=== PATIENT | female | born 1945 | race Caucasian/White ===

== ENCOUNTER 2019-10-29 14:02 | Observation (INO) | payer MEDICARE, SELFPAY ==
--- NOTE | ~2019-10-29 | CT_ITS ---
EXAMINATION: CT abdomen pelvis wo con DATE: 10/29/2019 15:17 INDICATION: Fall. Elevated INR. TECHNIQUE: Computed tomography (CT) of the abdomen and pelvis was performed without intravenous contr ast. Automated exposure control and iterative reconstruction technique were employed. Exam dose: 794 .43 mGy-cm total exam DLP. COMPARISON: None. FINDINGS: There is groundglass infiltrate in the right lower lobe, most prominent in the superior seg ment. There is some atelectasis and air bronchograms in the posteromedial right lower lobe and to a l pee extent the dependent left lower lobe. There is minimal groundglass infiltrate in the right uppe r lobe. There are bilateral small pleural effusions. There is cardiomegaly. There is aortic valve replacement . There is extensive severe coronary artery calcification. Status post sternotomy. No pericardial eff usion. No hepatic, splenic space-occupying mass lesion or visceral laceration is evident. No bile duct dilat ation. No pancreatic mass lesion or calcification or ductal dilatation. Normal morphology of the adrenal glands 3.7 cm upper pole left renal cyst 1.8 cm lower pole left renal probable cyst. Indeterminate 1.7 cm hyperdense rounded lesion at the upper pole of the right kidney, most likely a h yperdense cyst Exophytic 2.1 cm lateral mid right renal cyst. No ureteral calculus or hydroureteronephrosis. Up to approximately 3.2 cm infrarenal abdominal aortic saccular aneurysm. There is extensive severe calcification of the abdominal aorta and branches, with cast-like calcifica tions extensively of the celiac, mesenteric, renal and iliac arteries and branches. No intraperitoneal or retroperitoneal or pelvic mass lesion or adenopathy or ascites is detected. The urinary bladder, uterus and adnexal areas are unremarkable except for an approximately 1.7 x 2 cm right adnexal cystic lesion of uncertain significance. There are numerous diverticula of the sigmoid and descending colon; no CT evidence of diverticulitis. No bowel obstruction or intraperitoneal free air. Diffuse osteopenia. There are numerous fracture deformities of the thoracic and lumbar spine includin g prominent compression fractures of T7, T9, burst fracture of T11, in addition to prominent anterior wedge compression fracture deformities of T12, L1, L2. There is biconcavity of the remaining vertebr ae in the lower thoracic and lumbar spine area. One or more of these fractures may be recent. IMPRESSION: Numerous fracture deformities of the thoracic and lumbar spine, one or more of which kingsley ht be recent Diffuse osteopenia Groundglass infiltrates in the right lower lobe and to a lesser extent right upper lobe Atelectasis in both dependent lower lobes Small pleural effusions Cardiomegaly Severe arterial calcifications throughout the thorax and abdomen 3.2 cm infrarenal abdominal aortic saccular aneurysm Bilateral renal cysts Diverticulosis of the colon; no CT evidence of diverticulitis Reviewed, dictated and finalized at [facility]. Reviewed, dictated and finalized at [facility]. IMPRESSION: Numerous fracture deformities of the thoracic and lumbar spine, on e or more of which might be recent Diffuse osteopenia Groundglass infiltrates in the right lower lobe and to a lesser extent right up per lobe Atelectasis in both dependent lower lobes Small pleural effusions Cardiomegaly Severe arterial calcifications throughout the thorax and abdomen 3.2 cm infrarenal abdominal aortic saccular aneurysm Bilateral renal cysts Diverticulosis of the colon; no CT evidence of diverticulitis
--- NOTE | ~2019-10-29 | CT_ITS ---
EXAMINATION: CT brain wo con INDICATION: Head injury, lack of coordination COMPARISON: None TECHNIQUE: Standard unenhanced head CT. The dose-length product (DLP) was 605.33 mGy-cm. The mA was a djusted according to patient size. Iterative reconstruction technique was employed. FINDINGS: There is no acute intraparenchymal hemorrhage. No evidence of mass lesion. No evidence of a cute infarction. There are areas of prior infarction in the left basal ganglia. There is moderate per iventricular and subcortical hypodensity probably related to small vessel ischemic disease. There is moderate prominence of the sulci and ventricles related to cerebral atrophy. Intracranial calcified c erebral atherosclerosis is noted. There are no extra-axial collections. There is no mass effect or mi dline shift. Changes in the globes are likely from ocular lens surgery. The visualized sinuses and m astoid air cells are well aerated. There is partial opacification of the left nasal cavity. IMPRESSION: 1. No acute intracranial abnormality. 2. Age related findings. Reviewed, dictated and finalized at [facility].
[2019-10-29 14:05] VITALS: BP 132/75; PULSE 62; RESP 16; TEMP 36.5; O2SAT 93
[2019-10-29 14:20] LABS: Basophils Percent Auto 0.7 % (0.2-1.2); Eosinophils Absolute Auto 0.2 K/mm3 (0-0.3); Eosinophils Percent Auto 3.1 % (0-4.4); Hematocrit 24.5 % (37.0-47.0); Hemoglobin 7.5 g/dL (12.0-15.0); Immature Granulocyte Absolute 0.05 K/mm3 (0.00-0.031); Immature Granulocyte Percent A 0.8 % (0-0.5); Lymphocytes Absolute Auto 0.65 K/mm3 (0.9-3.2); Lymphocytes Percent Auto 10.6 % (18.3-44.2); Mean Corpuscular HGB Conc 30.6 g/dl (32-36); Mean Corpuscular Hemoglobin 31.6 pg (26-34); Mean Corpuscular Volume 103.4 fl (80-100); Mean Platelet Volume 9.2 fl (7.4-10.4); Monocytes Absolute Auto 0.3 K/mm3 (0.1-0.6); Monocytes Percent Auto 4.4 % (2.6-8.5); Neutrophils Percent Auto 80.4 % (45.5-73.1); Platelet Count Result 175 k/mm3 (150-375); Red Blood Count 2.37 M/mm3 (4.2-5.4); Red Cell Distribution Width 16.9 % (11.5-14.5); White Blood Count 6.2 K/mm3 (4.5-10.0)
--- NOTE | 2019-10-29 14:21 | ED.RECABL ---
HPI - Recheck/Abnormal Lab/Rx General Chief Complaint: Recheck/Abnormal Lab/Rx Stated Complaint: ABN LABS/DARK STOOLS Time Seen by Provider: 10/29/19 14:15 Source: patient and old records reviewed Mode of arrival: EMS Limitations: other (poor historian) History of Present Illness HPI narrative: A 74 y/o female pt presents to the ED, via EMS from [facility], with c/o nose bleed, black stools, and an INR lab result of >10. Pt was sent by nursing staff and her PCP Dr. Bejarano. Per nursing facility records, pt's INR was a 2.8 on 10/13/2019 and was >10 on 10/27/2019. Nursing facility records report that pt was ordered 5mg of vitamin K orally today, but did not administer to pt d/t not having any in stock at the facility. Pt notes having pain to her rt side from a recent fall that she states she received medical attention for, but denies having any pain in the ED. Per old records, pt has a rib fracture from a recent fall. Pt takes Warfarin as her anticoagulation therapy. Per records, pt is a DNR. A complete HPI is limited d/t pt being a poor historian. MD complaint: abnormal lab (INR) Description of abnormal result: INR >10 on 10/17/2019 Associated symptoms: other (black stools, epistaxis) Related Data Home Medications Medication Instructions Recorded Confirmed atorvastatin 80 mg PO DAILY 10/29/19 carvedilol 37.5 mg PO BID 10/29/19 docusate sodium [Colace] 100 mg PO DAILY 10/29/19 famotidine 40 mg PO DAILY 10/29/19 fentanyl 1 patch TRANSDERMAL Q72H 10/29/19 ferrous sulfate 325 mg PO DAILY 10/29/19 furosemide 40 mg PO DAILY 10/29/19 hydralazine 25 mg PO TID 10/29/19 isosorbide dinitrate 20 mg PO BID 10/29/19 lidocaine [Lidocaine Pain Relief] 1 patch TOPICAL DAILY PRN 10/29/19 magnesium oxide 400 mg PO DAILY 10/29/19 metolazone 2.5 mg PO DAILY 10/29/19 phytonadione (vitamin K1) 5 mg PO DAILY 10/29/19 promethazine 25 mg PO QID PRN 04/01/20 sertraline 100 mg PO DAILY 10/29/19 tramadol 50 mg PO Q6H PRN 10/29/19 trazodone 50 mg PO HS 10/29/19 umeclidinium-vilanterol [Anoro 1 inh INHALATION DAILY 10/29/19 Ellipta] Allergies Allergy/AdvReac Type Severity Reaction Status Date / Time acetaminophen Allergy Unknown Verified 04/12/17 13:38 hydralazine Allergy Unknown Verified 04/12/17 13:38 hydrocodone Allergy Unknown Verified 04/12/17 13:38 vancomycin Allergy Unknown Verified 04/12/17 13:38 Review of Systems Review of Systems: Narrative: A complete ROS is limited d/t pt being a poor historian. ENT: Reports epistaxis Gastrointestinal: Gastrointestinal: Reports melena Musculoskeletal: Musculoskeletal: Reports other (pain to rt side from recent fall, resolved) [facility] Past Medical History Medical History (Updated 10/29/19 @ 16:31 by Vicki Connors MD) Afib Chronic kidney disease COPD (chronic obstructive pulmonary disease) Depression Diabetes mellitus GI bleed History of gastroesophageal reflux (GERD) History of TIA (transient ischemic attack) History of UTI ESBL E-Coli Hyperlipidemia Hypertension Myocardial infarction Rib fracture Vitamin D deficiency Surgical History Surgical History (Updated 10/29/19 @ 16:02 by Paul CarrLeti Arts) History of prosthetic heart valve Social History Social History (Updated 10/29/19 @ 16:03 by Paul Carr [email or web address]) Living arrangements: residential Exam Const: General: cooperative, no acute distress and alert Nutritional Appearance: well nourished Orientation/consciousness: patient oriented x3 Limitations: no limitations HENMT: Mouth: Yes lip normal and Yes moist mucous membranes Resp: Effort & Inspection: normal respiratory effort Auscultation: clear to auscultation bilaterally Cardio: Rate: regular rate Rhythm: regular rhythm Heart sounds: Clicking heart sound present (mechanical valve audible click) GI: GI Palp: Yes Soft to palpation and No Tenderness to palpation present (GI) Auscultation: normal bowel soun
[2019-10-29 14:31] LABS: Alanine Aminotransferase 14 U/L (4-35); Albumin Level 3.8 g/dL (3.5-5.1); Alkaline Phosphatase 87 U/L (38-126); Aspartate Amino Transferase 28 U/L (14-36); Bilirubin,Total 0.9 mg/dL (0.2-1.3); Blood Urea Nitrogen 59 mg/dL (7-17); Calcium 9.5 mg/dL (8.4-10.2); Carbon Dioxide 29 mmol/L (22-30); Chloride 104 mmol/L (98-107); Estimated Glomerular Filt Rate 13; Glucose 123 mg/dL (65-105); Potassium 4.8 mmol/L (3.4-5.0); Prothrombin Time 58.7 Seconds (11.1-14.7); Sodium 139 mmol/L (137-145)
[2019-10-29 14:32] LABS: Partial Thromboplastin Time 61.4 SECONDS (22.3-36.8)
[2019-10-29 14:37] LABS: INR 6.9
--- NOTE | 2019-10-29 15:43 | PC.NURSE ---
Patient's son called to give his contact number. Blaine Nguyen: # .
[2019-10-29 15:45] LABS: Add Urine Microscopic? YES; Appearance Urine Clear (Clear); Bilirubin Urine Negative (Negative); Blood Urine Negative (Negative); Color Urine Straw (Yellow); Glucose Urine UA Negative (Negative); Ketones Urine Negative (Negative); Leukocyte Esterase Ur Trace LEU/UL (Negative); Mucus Urine Rare /lpf; Nitrate Urine Negative (Negative); Protein Urine Negative (Negative); RBC Urine 0-2 /hpf (0-2); Specific Grav Ur 1.012 (1.001-1.035); Squamous Epithelial Cell Urine Rare /hpf (Few); WBC Urine 0-3 /hpf
[2019-10-29 16:34] VITALS: BP 157/57; PULSE 59; RESP 16; O2SAT 96
--- NOTE | 2019-10-29 17:15 | ADMGEN ---
This patient, Yara Nguyen, was admitted to 3 [facility] Surg Room 313-01. Patient/family oriented to hospital policies and general routines including ID bracelet, bed and alarms, visiting hours, pain management, procedures, bathroom and other care routines, personal items, smoking policy, room service/diet, and visiting hours. Valuables list has been completed. Information on how to activate the Rapid Response Team has been discussed. Patient/Family are encouraged to report perceived risks to care and to ask questions if they do not understand what they are told or what they should do.
[2019-10-29 17:17] VITALS: BMI 25.8
--- NOTE | 2019-10-29 19:59 | PM.IMHP ---
H&P: HPI History of Present Illness Chief complaint: Elevated INR/anemia Narrative: Yara Nguyen is a 74 year old female year old female patient who is in rehab at [facility]. Typically she lives on her own. She has a history of atrial fibrillation and aortic valve replacement. Typically her INR is therapeutic around 2 or 3. However her INR was greater than 10 on 10/27/2019. Vitamin K was ordered but the nursing facility did not have it. She stated that she fell 2 days ago and hit her right chest and has been having some discomfort from that. She does have some chronic pain his on chronic pain medication. The patient stated that she was getting out of bed to her wheelchair and she has slid out and hit her right side on the wheelchair she believes she did not hit her head. However she did have a head CT which shows no acute intracranial abnormality and age-related findings. She has a CT of the abdomen and pelvis which just shows some small arterial calcifications throughout the thorax and abdomen. 3.2 cm infrarenal abdominal aortic saccular aneurysm. Small pleural effusions ground glass infiltrates in the right lower lobe and to the lesser extent right upper lobe. Her H&H is 7.524.5. Her creatinine is 3.5 BUN 59. The patient stated that she does have some kidney problems. Patient was having dark stools. GI has been consulted per ED physician. I was told it was Dr. castanon who was on-call. Date of service 10/29/2019 Review of Systems Review of Systems: All systems reviewed & are unremarkable except as noted in HPI and below Constitutional: Constitutional: Reports as per HPI and Reports no additional constitutional complaints Eyes: Eyes: Reports as per HPI and Reports no additional eye complaints ENT: Reports system reviewed and no additional complaints, except as documented and Reports Normal hearing present Cardiovascular: Cardiovascular: Reports no additional cardiovascular complaints Respiratory: Respiratory: Reports no additional respiratory complaints and Reports no additional respiratory complaints Gastrointestinal: Gastrointestinal: Reports as per HPI and Reports no additional gastrointestinal complaints Musculoskeletal: Musculoskeletal: Reports no additional musculoskeletal complaints Integumentary/Breasts: Skin/Breast: Reports system reviewed and no additional complaints, except as docu and Reports as per HPI Neurologic: Reports system reviewed and no additional complaints, except as documented, Reports as per HPI and Reports Normal hearing present Psychiatric: Psychiatric: Reports no additional psychiatric complaints and Reports as per HPI Endocrine: Endocrine: Reports no additional endocrine complaints Hematologic/Lymphatic: Hematologic/Lymphatic: Reports no additional hematologic/lymphatic complaints Allergic/Immunologic: Allergic/Immunologic: Reports no additional allergic/immunologic complaints [facility] Past Medical History Medical History (Updated 10/29/19 @ 20:35 by Caron Rowe NP) Afib Chronic kidney disease COPD (chronic obstructive pulmonary disease) Depression Diabetes mellitus GI bleed History of gastroesophageal reflux (GERD) History of TIA (transient ischemic attack) History of UTI ESBL E-Coli Hyperlipidemia Hypertension Myocardial infarction X2 Rib fracture Vitamin D deficiency Surgical History Surgical History (Updated 10/29/19 @ 20:12 by Caron Rowe NP) History of prosthetic heart valve Aortic valve replacement Family History Family History (Updated 10/29/19 @ 20:13 by Caron Rowe NP) Father Emphysema lung Mother Pancreatitis Social History Social History (Updated 10/29/19 @ 16:03 by Paul Carr, [facility]) Smoking status: Former smoker Alcohol intake: former Substance use: never Substance use type: does not use Living arrangements: skilled nursing Gender identity (if verbalized by the patient): Female Spiritual car
[2019-10-29 21:07] LABS: Immature Reticulocyte Fraction 17.6 % (3.0-15.9); Reticulocyte Hemoglobin Conten 34.8 pg (28.2-35.7); Reticulocytes Absolute 0.08 B/L (32.2-175.7)
[2019-10-29 21:11] LABS: Hematocrit 22.2 % (37.0-47.0)
[2019-10-29 21:18] LABS: Hemoglobin 6.8 g/dL (12.0-15.0); Prothrombin Time 60.1 Seconds (11.1-14.7)
[2019-10-29 21:19] LABS: Bilirubin,Total 0.7 mg/dL (0.2-1.3); Lactate Dehydrogenase 544 U/L (313-618)
[2019-10-29 21:26] LABS: Transferrin 149 mg/dL (206-381)
[2019-10-29 21:27] LABS: INR 7.1
[2019-10-29 21:31] VITALS: PULSE 80
[2019-10-29 21:32] LABS: Iron 72 ug/dL (37-170)
[2019-10-29] MEDS: FERROUS SULFATE 324 MG TABLET PO (21:32)
[2019-10-29] MEDS: hydrALAZINE HCL 25 MG TABLET PO (21:32)
[2019-10-29] MEDS: ISOSORBIDE DINITRATE 20 MG TABLET PO (21:32)
[2019-10-29 21:42] LABS: Percent Iron Saturation 31 % (20-50)
[2019-10-29 22:00] VITALS: BP 130/82; PULSE 66; RESP 20; TEMP 36.7; O2SAT 93
[2019-10-29 22:26] LABS: Folic Acid 6.1 ng/mL (2.76->20)
[2019-10-29] MEDS: TRAZODONE HCL 50 MG TABLET PO (22:40)
[2019-10-29] MEDS: PHYTONADIONE INJ 10 MG/ML AMP 5 MG SUB-Q (22:41)
[2019-10-29] MEDS: TRAMADOL HCL 50 MG TABLET PO (23:05)
[2019-10-30] VITALS (14 sets, daily range): BP systolic 149–187; BP diastolic 46–71; PULSE 57–71; RESP 16–22; TEMP 36.4–37.1; O2SAT 93–97
[2019-10-30 06:31] LABS: Hematocrit 23.6 % (37.0-47.0); Hemoglobin 7.3 g/dL (12.0-15.0)
[2019-10-30 06:40] LABS: Alanine Aminotransferase 11 U/L (4-35); Albumin Level 3.3 g/dL (3.5-5.1); Alkaline Phosphatase 75 U/L (38-126); Aspartate Amino Transferase 23 U/L (14-36); Bilirubin,Total 0.6 mg/dL (0.2-1.3); Blood Urea Nitrogen 61 mg/dL (7-17); Calcium 8.7 mg/dL (8.4-10.2); Carbon Dioxide 25 mmol/L (22-30); Chloride 104 mmol/L (98-107); Estimated CRCL calculation 10 ml/min; Estimated Glomerular Filt Rate 13; Glucose 87 mg/dL (65-105); Magnesium 2.1 mg/dL (1.6-2.3); Potassium 4.2 mmol/L (3.4-5.0); Sodium 138 mmol/L (137-145)
--- NOTE | 2019-10-30 07:34 | WPDGICN ---
Assessment and Plan Assessment and plan (1) Anemia: Qualifiers: Anemia type: unspecified type Qualified Code(s): D64.9 - Anemia, unspecified Code(s): D64.9 - Anemia, unspecified Status: Acute Assessment and Plan: Anemia appears to be multifactorial. Undoubtedly aggravated by her warfarin coagulopathy. Given her renal insufficiency this may contribute to a baseline anemia. Baseline is currently unknown. She does have a large hematoma on her back which may account for her acute decline in hemoglobin. She is reported to have dark stools but no clear blood in her GI tract. Plan is to Hemoccult stools. Consider GI endoscopy if stool Hemoccult is positive. Initial correction of her prothrombin time is advised. Continue to monitor hemoglobin. Transfuse if necessary to a stable hematocrit. We will follow with you. (2) Warfarin-induced coagulopathy: Code(s): D68.32 - Hemorrhagic disorder due to extrinsic circulating anticoagulants; T45.515A - Adverse effect of anticoagulants, initial encounter Status: Acute Assessment and Plan: INR was noted to be quite elevated. Coumadin will be held and restarted at a lower rate when INR is in therapeutic range. (3) Ecchymosis: Code(s): R58 - Hemorrhage, not elsewhere classified Status: Acute Assessment and Plan: Large hematoma on her right posterior chest is likely etiology for her abrupt decline in hemoglobin. Undoubtedly this is related to her elevated INR. (4) History of prosthetic heart valve: Code(s): Z95.2 - Presence of prosthetic heart valve Status: Acute Assessment and Plan: Because of mechanical heart valve patient will require long-term anticoagulation. She will need a lower dose of Coumadin. An INR will need to be monitored closely. (5) COPD (chronic obstructive pulmonary disease): Code(s): J44.9 - Chronic obstructive pulmonary disease, unspecified Status: Chronic (6) ARF (acute renal failure): Code(s): N17.9 - Acute kidney failure, unspecified Status: Acute Assessment and Plan: Elevated creatinine now at 3.5. It is uncertain if this is acute or chronic. It is also possible that chronic kidney disease could contribute to her anemia. GI Consult Note Consult date/time: 10/30/19 07:34 HPI: Yara Nguyen is a 74 year old female I am asked to see at the request of the emergency room. Patient I am asked to see the patient because of dark stools. Patient current we resident of rehab center. She this is a difficult historian. Apparently had a fall at the retirement. She apparently was referred to the emergency room because of elevated INR. She apparently had a nose bleed, and dark stools. Patient denies any obvious blood in her stools denies any blood in her urine. After her fall she has a bruise on her back. She no longer has nose bleeds but states she had a lot of bleeding yesterday. She denies abdominal pain. She has been eating well and denies any difficulty with bowel habits. Her past history is signal in for a mechanical heart valve. She has a history of atrial fibrillation. She is current on chronic warfarin anticoagulation. Two weeks ago her INR was therapeutic. She is reported to have an INR greater than 10 in the retirement. INR to our institution was 7.1. On presentation hemoglobin was 6.8. In the ER her creatinine was noted to be 3.5. Review of Systems Review of Systems: ROS unobtainable: Yes unobtainable due to medical condition [facility] Past Medical History Medical History Afib Chronic kidney disease COPD (chronic obstructive pulmonary disease) Depression Diabetes mellitus GI bleed History of gastroesophageal reflux (GERD) History of TIA (transient ischemic attack) History of UTI ESBL E-Coli Hyperlipidemia Hypertension Myocardial infarction X2 Rib fracture Vitamin D deficien
[2019-10-30] MEDS: hydrALAZINE HCL 25 MG TABLET PO ×2 (08:45→13:00)
[2019-10-30] MEDS: SERTRALINE HCL 50 MG TABLET 100 MG PO (08:48)
[2019-10-30] MEDS: ISOSORBIDE DINITRATE 20 MG TABLET PO ×2 (08:49→16:50)
[2019-10-30] MEDS: DOCUSATE SODIUM 100 MG CAPSULE PO (08:51)
[2019-10-30] MEDS: FAMOTIDINE 20 MG TABLET 40 MG PO (08:53)
[2019-10-30] MEDS: MAGNESIUM OXIDE 400 MG TABLET PO (08:54)
[2019-10-30] MEDS: CHOLECALCIFEROL 1,000 UNIT TABLET 1000 UNITS PO (08:54)
[2019-10-30] MEDS: ATORVASTATIN 40 MG TABLET 80 MG PO (08:54)
[2019-10-30] MEDS: FERROUS SULFATE 324 MG TABLET PO (08:54)
[2019-10-30] MEDS: FENTANYL 50 MCG/HR PATCH TRANSDERM (08:56)
[2019-10-30] MEDS: polyethylene glycoL 3350 17 GM POWD.PACK PO (08:59)
[2019-10-30 10:11] LABS: Hematocrit 28.8 % (37.0-47.0); Hemoglobin 9.3 g/dL (12.0-15.0)
--- NOTE | 2019-10-30 11:52 | PM.IMPN ---
Progress Note: A&P Assessment and Plan (1) Anemia: Qualifiers: Anemia type: unspecified type Qualified Code(s): D64.9 - Anemia, unspecified Code(s): D64.9 - Anemia, unspecified Status: Acute Assessment and Plan: Noted to have macrocytic anemia with Hgb 7.3 and Hct 23.6. B12 and Folate within normal limits. May be related to CKD. She is asymptomatic and her vitals are stable. She has a large hematoma on her back which may have contributed to anemia. - Continue to monitor H&H. Will transfuse at threshold 7.0. - IFOB is ordered. Continue Miralax to assist with BM. - Dr. Roberts is consulted and recommendations are appreciated. (2) Warfarin-induced coagulopathy: Code(s): D68.32 - Hemorrhagic disorder due to extrinsic circulating anticoagulants; T45.515A - Adverse effect of anticoagulants, initial encounter Status: Acute Assessment and Plan: INR was 6.9 at presentation and apparently was 10 at SNF. She has aortic valve replacement which is why she takes coumadin. - Check PT/INR daily. - Continue to hold Coumadin until INR <3.0 - Resume Coumadin at 1/2 daily dose once INR is <3.0 (3) Diabetes mellitus: Code(s): E11.9 - Type 2 diabetes mellitus without complications Status: Chronic Assessment and Plan: Blood sugar evaluated today and stable at 87. - Continue Accu-Checks ACHS. - Order SSI and hypoglycemia protocol - Continue to monitor blood sugar (4) COPD (chronic obstructive pulmonary disease): Code(s): J44.9 - Chronic obstructive pulmonary disease, unspecified Status: Chronic Assessment and Plan: Not in acute exacerbation. Maintaining oxygen saturation at 94% on room air - Continue home inhalers (5) Hypertension: Code(s): I10 - Essential (primary) hypertension Status: Chronic Assessment and Plan: Blood pressure evaluated today and stable at 169/59. - Continue with Coreg and hydralazine. (6) Acute on chronic kidney failure: Code(s): N17.9 - Acute kidney failure, unspecified; N18.9 - Chronic kidney disease, unspecified Status: Acute Assessment and Plan: Patient has CKD and per her daughter in law her baseline is 2.1. She sees a miner helper in [place]. She was scheduled to have renal US today which she refused. Her creatinine today is 3.4. This may be prerenal but unclear as her true baseline is unknown. Her urine output is good. - Continue to monitor kidney function - Will hold IV fluids for now and resume home dose Lasix as she is edematous and appears mildly fluid overloaded. (7) Congestive heart failure: Code(s): I50.9 - Heart failure, unspecified Status: Acute Assessment and Plan: Patients daughter in reports she has a history of CHF and per last echo approximately 6 months ago her EF was 20%. She was edematous on exam today. - Resume home dose Lasix - Continue home Coreg - Continue to monitor fluid status Subjective Date/time seen: 10/30/19 11:52 Interval history: Date of service: 10/30/2019 Ms. Nguyen reports she feels better than yesterday. She endorses back pain secondary to her fall. She has rather apparent short term memory issues and isn't able to answer many questions regarding details of the event. She is oriented to herself only. She denies SOB or CP. She denies abdominal pain, nausea, vomiting, fever, chills, dizziness, lightheadedness, weakness, or fatigue. She denies active bleeding but endorses bruising. She is urinating without difficulty. She has not had a bowel movement today and is unclear when her last BM was. She is eating and drinking well and sleeping well. She refused her renal US today. She asks me to contact her daughter in law, Sweta, via phone who tells me she follows with a miner helper in [facility] and doesn't wish for her to repeat a renal US. She also tells me she has a history of CHF with last EF 20% based on
[2019-10-30 12:54] LABS: Prothrombin Time 30.5 Seconds (11.1-14.7)
[2019-10-30 12:55] LABS: Partial Thromboplastin Time 44.2 SECONDS (22.3-36.8)
[2019-10-30 13:01] LABS: Uric Acid 10.6 mg/dL (2.5-7.5)
[2019-10-30] MEDS: TRAMADOL HCL 50 MG TABLET PO (13:16)
--- NOTE | 2019-10-30 17:15 | PC.NURSE ---
Patient refused 1700 dose of Hydralazine - Valery Stimac notified
[2019-10-30 18:19] LABS: Hematocrit 26.4 % (37.0-47.0); Hemoglobin 8.5 g/dL (12.0-15.0)
--- NOTE | 2019-10-30 18:56 | PC.NURSE ---
TALKED WITH STANLEY HUTCHISON ON CONDITION. THEY WILL PUT BED ON HOLD AT FORREST.
[2019-10-30] MEDS: TRAZODONE HCL 50 MG TABLET PO (20:46)
[2019-10-31 02:08] LABS: Glucose Point of Care 114 (65-105)
[2019-10-31 05:44] LABS: Basophils Percent Auto 0.6 % (0.2-1.2); Eosinophils Absolute Auto 0.3 K/mm3 (0-0.3); Eosinophils Percent Auto 5.7 % (0-4.4); Hemoglobin 8.5 g/dL (12.0-15.0); Immature Granulocyte Absolute 0.03 K/mm3 (0.00-0.031); Immature Granulocyte Percent A 0.6 % (0-0.5); Lymphocytes Absolute Auto 0.91 K/mm3 (0.9-3.2); Lymphocytes Percent Auto 16.7 % (18.3-44.2); Mean Corpuscular HGB Conc 31.5 g/dl (32-36); Mean Corpuscular Hemoglobin 31.7 pg (26-34); Mean Corpuscular Volume 100.7 fl (80-100); Mean Platelet Volume 8.9 fl (7.4-10.4); Monocytes Absolute Auto 0.4 K/mm3 (0.1-0.6); Monocytes Percent Auto 7.7 % (2.6-8.5); Neutrophils Absolute Auto 3.7 K/mm3 (1.3-6.7); Neutrophils Percent Auto 68.7 % (45.5-73.1); Platelet Count Result 141 k/mm3 (150-375); Red Blood Count 2.68 M/mm3 (4.2-5.4); Red Cell Distribution Width 17.4 % (11.5-14.5); White Blood Count 5.4 K/mm3 (4.5-10.0)
[2019-10-31 05:46] LABS: INR 1.8; Prothrombin Time 20.1 Seconds (11.1-14.7)
[2019-10-31 05:53] LABS: Alanine Aminotransferase 11 U/L (4-35); Albumin Level 3.1 g/dL (3.5-5.1); Alkaline Phosphatase 73 U/L (38-126); Aspartate Amino Transferase 21 U/L (14-36); Bilirubin,Total 0.8 mg/dL (0.2-1.3); Blood Urea Nitrogen 53 mg/dL (7-17); Calcium 8.9 mg/dL (8.4-10.2); Carbon Dioxide 27 mmol/L (22-30); Chloride 107 mmol/L (98-107); Estimated CRCL calculation 11 ml/min; Estimated Glomerular Filt Rate 15; Glucose 90 mg/dL (65-105); Potassium 4.1 mmol/L (3.4-5.0); Sodium 139 mmol/L (137-145)
[2019-10-31 06:17] VITALS: BP 159/54; PULSE 61; RESP 16; TEMP 36.6; O2SAT 100
--- NOTE | 2019-10-31 08:01 | WPDGIPROGNO ---
Progress Note: A&P Additional Plan Patient alert this morning. Still a difficult historian. Denies any recent abdominal pain. Denies any obvious bleeding. On physical exam she has a large hematoma on her back. Abdomen is soft bowel sounds are present nontender with no organomegaly. Stool Hemoccult pending. Labs reveal hemoglobin 8.5, hematocrit 27, MCV 100. After transfusion. Protime 20.1, INR 1.8. Impression 1. Anemia. Normal iron indices. she likely has underlying anemia secondary to chronic kidney disease. Anemia may be worse with recent hematoma on her back. Undoubtedly aggravated by elevated prothrombin time. No evidence for GI blood loss. Stool Hemoccult still pending. Will continue to monitor. 2. Coagulopathy. Protime now corrected. Patient will need dose adjustment for warfarin. Okay to restart Coumadin at lower dose from my perspective. 3.Valvular heart disease. Mechanical valve will require anticoagulation. Continue to monitor hemoglobin and prothrombin time after restarted it Subjective Date/time seen: 10/31/19 08:01 Objective Data Vital Signs Vital Signs: Vital Signs - 24 hr 10/30/19 08:43 10/30/19 14:00 10/30/19 21:31 Temperature 36.6 C 36.9 C 36.9 C Pulse Rate 69 71 67 Respiratory Rate 20 20 18 Blood Pressure 187/59 H 174/71 H 149/53 H Pulse Oximetry 96 94 93 10/30/19 21:38 10/30/19 22:00 10/31/19 06:17 Temperature 37.1 C 36.6 C Pulse Rate 63 63 61 Respiratory Rate 16 16 Blood Pressure 149/53 H 159/54 H Pulse Oximetry 93 100 Intake/Output Intake/Output: Intake & Output 10/28/19 10/29/19 10/30/19 10/31/19 23:59 23:59 23:59 23:59 Intake Total 490 1471 0 Balance 490 1471 0 Meds/Results Medications: Active Medications Generic Name Dose Route Start Last Admin Trade Name Freq PRN Reason Stop Dose Admin Acetaminophen 325 mg 10/29/19 19:55 Tylenol Tablet PO Q6-8H PRN Pain Atorvastatin Calcium 80 mg 10/30/19 09:00 10/30/19 08:54 Lipitor PO 80 mg DAILY [facility] Administration Calcium Carbonate 500 mg 10/30/19 09:00 04/02/20 08:51 Os-Joni 500 +D Tablet PO 500 mg QAM [facility] Administration Carvedilol 12.5 mg/ Carvedilol 37.5 mg 10/29/19 21:00 10/30/19 21:38 25 mg PO 37.5 mg Q12HR [facility] Administration Dextrose 12.5 gm 10/30/19 18:42 Dextrose 50% Syringe IV PUSH PRN PRN Hypoglycemia Protocol Docusate Sodium 100 mg 10/30/19 09:00 10/30/19 08:51 Colace Capsule PO 100 mg DAILY [facility] Administration Famotidine 40 mg 10/30/19 09:00 10/30/19 08:53 Pepcid PO 40 mg DAILY [facility] Administration Fentanyl 50 mcg 10/30/19 09:00 10/30/19 08:56 Duragesic 50 Mcg Patch TRANSDERM 50 mcg Q72H [facility] Administration Ferrous Sulfate 324 mg 10/29/19 17:00 10/30/19 16:50 Ferrous Sulfate PO Not Given BID [facility] Furosemide 40 mg 10/31/19 09:00 Lasix Tablet PO DAILY [facility] Glucagon 1 mg 10/30/19 18:42 Glucagon For Inj IM PRN PRN Hypoglycemia Protocol Glucose 15 gm 10/30/19 18:42 Glutose 15 PO PRN PRN Hypoglycemia Protocol Hydralazine HCl 25 mg 10/29/19 17:00 10/30/19 17:00 Apresoline Tablet PO Not Given TID [facility] Dextrose 1,000 mls @ 100 mls/hr 10/30/19 18:42 Dextrose 5% 1,000 Ml IVPB PRN PRN Hypoglycemia Protocol Insulin Aspart 3 - 6 units 10/31/19 08:00 Novolog SUB-Q TIDWM [facility] Protocol Isosorbide Dinitrate 20 mg 10/29/19 17:00 10/30/19 16:50 Isordil PO 20 mg BID [facility] Administration Lidocaine 1 patch 10/30/19 16:22 Lidoderm TRANSDERM DAILY PRN Pain Magnesium Oxide 400 mg 10/30/19 09:00 10/30/19 08:54 Mag-Ox PO 400 mg DAILY [facility] Administration Non-Formulary Medication 1 puff 10/30/19 09:00 Anoro Ellipta INHALATION 11/29/19 09:01 DAILY [facility] Polyethylene Glycol 17 gm 10/30/19 09:00 10/30/19 08:59 Miralax PO 17 gm DAILY [facility] Admi
[2019-10-31 08:26] VITALS: PULSE 61
[2019-10-31] MEDS: CHOLECALCIFEROL 1,000 UNIT TABLET 1000 UNITS PO (08:26)
[2019-10-31] MEDS: ATORVASTATIN 40 MG TABLET 80 MG PO (08:26)
[2019-10-31] MEDS: hydrALAZINE HCL 25 MG TABLET PO ×3 (08:26→17:11)
[2019-10-31] MEDS: SERTRALINE HCL 50 MG TABLET 100 MG PO (08:27)
[2019-10-31] MEDS: ISOSORBIDE DINITRATE 20 MG TABLET PO ×2 (08:27→17:11)
[2019-10-31] MEDS: FAMOTIDINE 20 MG TABLET 40 MG PO (08:27)
[2019-10-31] MEDS: DOCUSATE SODIUM 100 MG CAPSULE PO (08:27)
[2019-10-31] MEDS: polyethylene glycoL 3350 17 GM POWD.PACK PO (08:27)
[2019-10-31] MEDS: MAGNESIUM OXIDE 400 MG TABLET PO (08:27)
[2019-10-31] MEDS: FERROUS SULFATE 324 MG TABLET PO ×2 (08:28→17:10)
[2019-10-31] MEDS: FUROSEMIDE 40 MG TABLET PO (08:28)
[2019-10-31 09:20] LABS: Glucose Point of Care 88 (65-105)
--- NOTE | 2019-10-31 11:34 | PM.IMPN ---
Progress Note: A&P Assessment and Plan (1) Anemia: Qualifiers: Anemia type: unspecified type Qualified Code(s): D64.9 - Anemia, unspecified Code(s): D64.9 - Anemia, unspecified Status: Acute Assessment and Plan: Noted to have macrocytic anemia with Hgb 7.3 and Hct 23.6. B12 and Folate within normal limits. Iron panel normal. May be related to CKD. She was transfused 2 units pRBC on 10/29/19 due to Hgb 6.8 She is asymptomatic and her vitals are stable. She has a large hematoma on her back which may have contributed to anemia. Today Hgb stable at 8.5. - Continue to monitor H&H. Will transfuse at threshold 7.0. - Await results of FOBT. Order bisacodyl to stimulate BM. - Dr. Roberts is consulted and recommendations are appreciated. (2) Warfarin-induced coagulopathy: Code(s): D68.32 - Hemorrhagic disorder due to extrinsic circulating anticoagulants; T45.515A - Adverse effect of anticoagulants, initial encounter Status: Acute Assessment and Plan: INR was 6.9 at presentation and apparently was 10.0 at [facility]. She is on Warfarin due to aortic valve replacement. Her INR has normalized and today is 1.8. Per discussion with lavern vasquez, her warfarin has been on hold since 10/01/19, therefore unclear how she became supratherapeutic. Suspect that she has still been taking warfarin on her own. Regardless, PT/INR improved with holding. LFTs wnl. Staff at [facility] report her usual dose is daily alternation of 2 mg and 3 mg, so will need to reduce. - Resume Warfarin at 1 mg daily. - Continue to monitor PT/INR daily - Hold Warfarin if INR >3.0 (3) Diabetes mellitus: Code(s): E11.9 - Type 2 diabetes mellitus without complications Status: Chronic Assessment and Plan: Blood sugar evaluated today and stable at 141. - Continue Accu-Checks, SSI, and hypoglycemia protocol - Continue to monitor blood sugar (4) COPD (chronic obstructive pulmonary disease): Code(s): J44.9 - Chronic obstructive pulmonary disease, unspecified Status: Chronic Assessment and Plan: Not in acute exacerbation. Maintaining oxygen saturation at 100% on room air - Continue home inhalers (5) Hypertension: Code(s): I10 - Essential (primary) hypertension Status: Chronic Assessment and Plan: Blood pressure evaluated today and stable at 159/54. - Continue with Coreg and hydralazine. (6) Acute on chronic kidney failure: Code(s): N17.9 - Acute kidney failure, unspecified; N18.9 - Chronic kidney disease, unspecified Status: Acute Assessment and Plan: Patient has CKD and per her daughter in law her baseline is 2.1. She sees a supervisor home restoration service in [place]. She refused renal US on 10/29. Her creatinine today is 3.1, which is improved from yesterday. This may be prerenal but unclear as her true baseline is unknown. Her urine output is good. - Continue to monitor kidney function - Avoid IV fluids as she has CHF with poor EF. (7) Congestive heart failure: Code(s): I50.9 - Heart failure, unspecified Status: Acute Assessment and Plan: Patients daughter in law reports she has a history of CHF and per last echo approximately 6 months ago her EF was 20%. She was noted to have a murmur, but refused Echo. She was edematous on exam today but denied SOB. - Continue home dose Lasix. - Continue home Coreg - Continue to monitor fluid status - Monitor daily weights Subjective Date/time seen: 10/31/19 11:34 Interval history: Ms. Nguyen reports she is feeling well today. She is alert to only self. She endorses some mild upper back pain related to her fall and hematoma. She denies SOB, CP, abdominal pain, N/V, fever, chills, dizziness, lightheadedness, headache, cough, congestion. She reports she is eating well. She has not had a BM since presentation but we are awaiting to check stool for occult blood. She denies urinary symptoms. She slep
[2019-10-31 11:48] LABS: Glucose Point of Care 132 (65-105)
[2019-10-31] MEDS: BISACODYL 5 MG TABLET EC PO (12:04)
[2019-10-31 13:51] LABS: INR 1.6; Prothrombin Time 18.5 Seconds (11.1-14.7)
[2019-10-31 14:00] VITALS: BP 160/43; PULSE 63; RESP 18; TEMP 36.8; O2SAT 92
[2019-10-31] MEDS: WARFARIN (*PBKC) 1 MG TABLET PO (17:10)
[2019-10-31] MEDS: TRAMADOL HCL 50 MG TABLET PO (17:42)
[2019-10-31 17:46] LABS: Glucose Point of Care 99 (65-105)
[2019-10-31 20:00] VITALS: PULSE 68; RESP 18; O2SAT 92
[2019-10-31] MEDS: TRAZODONE HCL 50 MG TABLET PO (21:41)
[2019-10-31 21:42] VITALS: PULSE 68
[2019-10-31 22:00] VITALS: BP 173/47; PULSE 68; RESP 18; TEMP 37; O2SAT 94
[2019-11-01] VITALS (11 sets, daily range): BP systolic 123–166; BP diastolic 38–55; PULSE 61–64; RESP 16–18; TEMP 36.4–36.6; O2SAT 92–96
[2019-11-01 06:03] LABS: Glucose Point of Care 165 (65-105)
[2019-11-01 06:30] LABS: Hematocrit 26.8 % (37.0-47.0); Hemoglobin 8.4 g/dL (12.0-15.0); Mean Corpuscular HGB Conc 31.3 g/dl (32-36); Mean Corpuscular Hemoglobin 32.2 pg (26-34); Mean Corpuscular Volume 102.7 fl (80-100); Platelet Count Result 135 k/mm3 (150-375); Red Blood Count 2.61 M/mm3 (4.2-5.4); Red Cell Distribution Width 16.8 % (11.5-14.5); White Blood Count 5.1 K/mm3 (4.5-10.0)
[2019-11-01 06:43] LABS: Blood Urea Nitrogen 48 mg/dL (7-17); Calcium 8.9 mg/dL (8.4-10.2); Carbon Dioxide 27 mmol/L (22-30); Chloride 108 mmol/L (98-107); Estimated CRCL calculation 12 ml/min; Estimated Glomerular Filt Rate 16; Glucose 83 mg/dL (65-105); Sodium 140 mmol/L (137-145)
[2019-11-01 07:00] LABS: INR 1.4; Prothrombin Time 17.2 Seconds (11.1-14.7)
--- NOTE | 2019-11-01 08:26 | WPDGIPROGNO ---
Progress Note: A&P Additional Plan Patient comfortable at rest this morning. She denies any obvious blood in her stools. Denies abdominal pain. Physical exam reveals large bruise on her back. Lungs are clear. Heart reveals a valvular heart sounds. Mechanical in nature. Abdomen is soft nontender with no organomegaly. Laboratory work reveals hemoglobin 8.4, hematocrit 26.8, MCV 102. Creatinine 2.8 this morning. Impression 1. Valvular heart disease. This will necessitate anticoagulation. May have contributed to her large hematoma. 2. Anemia. Likely multifactorial. She has evidence for kidney disease suggesting she may have chronic anemia. Hematoma may have contributed to her decline in hematocrit. There has been no evidence for GI blood loss. Stool Hemoccult is still pending. 3. Hematoma. Occurred after a fall. 4. Anticoagulation. This will need to be resumed at therapeutic doses given her valvular heart. Subjective Date/time seen: 11/01/19 08:26 Objective Data Vital Signs Vital Signs: Vital Signs - 24 hr 10/31/19 14:00 10/31/19 20:00 10/31/19 21:42 Temperature 36.8 C Pulse Rate 63 68 68 Respiratory Rate 18 18 Blood Pressure 160/43 H Pulse Oximetry 92 92 10/31/19 22:00 11/01/19 06:00 Temperature 37.0 C 36.6 C Pulse Rate 68 61 Respiratory Rate 18 16 Blood Pressure 173/47 H 166/48 H Pulse Oximetry 94 93 Intake/Output Intake/Output: Intake & Output 10/29/19 10/30/19 10/31/19 11/01/19 23:59 23:59 23:59 23:59 Intake Total 490 1471 480 150 Output Total 100 Balance 490 1471 480 50 Meds/Results Medications: Active Medications Generic Name Dose Route Start Last Admin Trade Name Freq PRN Reason Stop Dose Admin Acetaminophen 325 mg 10/29/19 19:55 Tylenol Tablet PO Q6-8H PRN Pain Atorvastatin Calcium 80 mg 10/30/19 09:00 10/31/19 08:26 Lipitor PO 80 mg DAILY [facility] Administration Calcium Carbonate 500 mg 10/30/19 09:00 10/31/19 08:27 Os-Joni 500 +D Tablet PO 500 mg QAM [facility] Administration Carvedilol 12.5 mg/ Carvedilol 37.5 mg 10/29/19 21:00 10/31/19 21:42 25 mg PO 37.5 mg Q12HR [facility] Administration Dextrose 12.5 gm 10/30/19 18:42 Dextrose 50% Syringe IV PUSH PRN PRN Hypoglycemia Protocol Docusate Sodium 100 mg 10/30/19 09:00 10/31/19 08:27 Colace Capsule PO 100 mg DAILY [facility] Administration Famotidine 40 mg 10/30/19 09:00 10/31/19 08:27 Pepcid PO 40 mg DAILY [facility] Administration Fentanyl 50 mcg 10/30/19 09:00 10/30/19 08:56 Duragesic 50 Mcg Patch TRANSDERM 50 mcg Q72H [facility] Administration Ferrous Sulfate 324 mg 10/29/19 17:00 10/31/19 17:10 Ferrous Sulfate PO 324 mg BID [facility] Administration Furosemide 40 mg 10/31/19 09:00 10/31/19 08:28 Lasix Tablet PO 40 mg DAILY [facility] Administration Glucagon 1 mg 10/30/19 18:42 Glucagon For Inj IM PRN PRN Hypoglycemia Protocol Glucose 15 gm 10/30/19 18:42 Glutose 15 PO PRN PRN Hypoglycemia Protocol Hydralazine HCl 25 mg 10/29/19 17:00 10/31/19 17:11 Apresoline Tablet PO 25 mg TID [facility] Administration Dextrose 1,000 mls @ 100 mls/hr 10/30/19 18:42 Dextrose 5% 1,000 Ml IVPB PRN PRN Hypoglycemia Protocol Insulin Aspart 3 - 6 units 10/31/19 08:00 10/31/19 17:10 Novolog SUB-Q Not Given TIDWM [facility] Protocol Isosorbide Dinitrate 20 mg 10/29/19 17:00 10/31/19 17:11 Isordil PO 20 mg BID [facility] Administration Lidocaine 1 patch 10/30/19 16:22 Lidoderm TRANSDERM DAILY PRN Pain Magnesium Oxide 400 mg 10/30/19 09:00 10/31/19 08:27 Mag-Ox PO 400 mg DAILY [facility] Administration Non-Formulary Medication 1 puff 10/30/19 09:00 Anoro Ellipta INHALATION 11/29/19 09:01 DAILY [facility] Polyethylene Glycol 17 gm 10/30/19 09:00 10/31/19 08:27 Miralax PO 17 gm DAILY [facility] Administration Promethazine HCl
[2019-11-01 08:38] LABS: Glucose Point of Care 94 (65-105)
--- NOTE | 2019-11-01 09:12 | PM.IMPN ---
Progress Note: A&P Assessment and Plan (1) Anemia: Qualifiers: Anemia type: unspecified type Qualified Code(s): D64.9 - Anemia, unspecified Code(s): D64.9 - Anemia, unspecified Status: Acute Assessment and Plan: Noted to have macrocytic anemia. B12 and Folate within normal limits. Iron panel normal. May be related to CKD. She was transfused 2 units pRBC on 10/29/19 due to Hgb 6.8 She is asymptomatic and her vitals are stable. She has a large hematoma on her back which may have contributed to anemia. Today Hgb stable at 8.4. - Continue to monitor H&H. Will transfuse at threshold 7.0. - Await results of FOBT - Dr. Roberts is consulted and recommendations are appreciated. (2) Warfarin-induced coagulopathy: Code(s): D68.32 - Hemorrhagic disorder due to extrinsic circulating anticoagulants; T45.515A - Adverse effect of anticoagulants, initial encounter Status: Acute Assessment and Plan: INR was 6.9 at presentation and apparently was 10.0 at [facility]. She is on Warfarin due to mechanical aortic valve replacement. Her INR has normalized and today is 1.4. Per discussion with [facility], her warfarin has been on hold since 10/01/19, therefore unclear how she became supratherapeutic. Suspect that she has still been taking warfarin on her own. Regardless, PT/INR decreased with holding. LFTs wnl. Staff at [facility] report her usual dose is daily alternation of 2 mg and 3 mg, so will need to reduce. - Resume Warfarin at 1 mg. - Continue to monitor PT/INR daily. She will need to have INR monitored by SNF pending discharge. Goal is 2.5 to 3.0. - Hold Warfarin if INR >3.0 (3) Congestive heart failure: Code(s): I50.9 - Heart failure, unspecified Status: Acute Assessment and Plan: Patients daughter in law reports she has a history of CHF and per last echo approximately 6 months ago her EF was 20%. She was noted to have a murmur, but refused Echo on 10/29. On exam she is edematous and has bibasilar crackles. - Order IV Lasix - Continue home Coreg - Continue to monitor fluid status - Monitor daily weights (4) Acute on chronic kidney failure: Code(s): N17.9 - Acute kidney failure, unspecified; N18.9 - Chronic kidney disease, unspecified Status: Acute Assessment and Plan: Patient has CKD and per her daughter in law her baseline is 2.1. She sees a back wedger in [place]. She refused renal US on 10/29. Her creatinine continues to trend down and is 2.8 today. This acute increase may have been prerenal but unclear as her true baseline is unknown. Her urine output is good. - Continue to monitor kidney function - Avoid IV fluids as she has CHF with poor EF. (5) Diabetes mellitus: Code(s): E11.9 - Type 2 diabetes mellitus without complications Status: Chronic Assessment and Plan: Blood sugar evaluated today and stable at 83. - Continue Accu-Checks, SSI, and hypoglycemia protocol - Continue to monitor blood sugar (6) COPD (chronic obstructive pulmonary disease): Code(s): J44.9 - Chronic obstructive pulmonary disease, unspecified Status: Chronic Assessment and Plan: Not in acute exacerbation. Maintaining oxygen saturation at 93% on room air - Continue home inhalers (7) Hypertension: Code(s): I10 - Essential (primary) hypertension Status: Chronic Assessment and Plan: Blood pressure evaluated today and stable at 166/48. - Continue with Coreg and hydralazine. (8) Back pain: Code(s): M54.9 - Dorsalgia, unspecified Status: Acute Assessment and Plan: Patient fell and now has large hematoma on her back which is very tender. She is experiencing back discomfort which is controlled with lidocaine patches and her home pain medication regimen. CT revealed numerous fracture deformities of the thoracic and lumbar spine, one or more of which might be recent. I suspect she has oste
[2019-11-01] MEDS: LIDOCAINE 5% PATCH 1 PATCH TRANSDERM (09:40)
[2019-11-01] MEDS: SERTRALINE HCL 50 MG TABLET 100 MG PO (09:44)
[2019-11-01] MEDS: ATORVASTATIN 40 MG TABLET 80 MG PO (09:44)
[2019-11-01] MEDS: DOCUSATE SODIUM 100 MG CAPSULE PO (09:44)
[2019-11-01] MEDS: MAGNESIUM OXIDE 400 MG TABLET PO (09:44)
[2019-11-01] MEDS: ISOSORBIDE DINITRATE 20 MG TABLET PO ×2 (09:44→17:35)
[2019-11-01] MEDS: hydrALAZINE HCL 25 MG TABLET PO (09:44)
[2019-11-01] MEDS: CHOLECALCIFEROL 1,000 UNIT TABLET 1000 UNITS PO (09:44)
[2019-11-01] MEDS: FAMOTIDINE 20 MG TABLET 40 MG PO (09:45)
[2019-11-01] MEDS: FERROUS SULFATE 324 MG TABLET PO ×2 (09:45→17:35)
[2019-11-01] MEDS: polyethylene glycoL 3350 17 GM POWD.PACK PO (09:47)
[2019-11-01] MEDS: FUROSEMIDE INJ 40 MG/4 ML VIAL IV PUSH (09:50)
[2019-11-01] MEDS: MAGNESIUM CITRATE 300 ML BTL 150 ML PO (11:30)
[2019-11-01 12:55] LABS: Glucose Point of Care 200 (65-105)
[2019-11-01 13:41] LABS: Haptoglobin 17 mg/dL (43-212)
[2019-11-01 16:33] LABS: IFOB Positive Control Positive; Immunochemical Fecal Occult Bl Positive (N)
[2019-11-01] MEDS: WARFARIN (*PBKC) 1 MG TABLET PO (17:37)
[2019-11-01 18:15] LABS: Glucose Point of Care 134 (65-105)
--- NOTE | 2019-11-01 18:16 | PC.NURSE ---
Pt unable to stand long enough to obtain standing orthostatic bp.
[2019-11-01] MEDS: TRAZODONE HCL 50 MG TABLET PO (21:16)
[2019-11-02] VITALS (7 sets, daily range): BP systolic 147–172; BP diastolic 40–94; PULSE 62–70; RESP 13–22; TEMP 36.6–36.7; O2SAT 92–97
[2019-11-02 03:53] LABS: Glucose Point of Care 156 (65-105)
[2019-11-02 06:18] LABS: Blood Urea Nitrogen 46 mg/dL (7-17); Calcium 9.6 mg/dL (8.4-10.2); Carbon Dioxide 32 mmol/L (22-30); Chloride 105 mmol/L (98-107); Estimated CRCL calculation 13 ml/min; Estimated Glomerular Filt Rate 19; Glucose 85 mg/dL (65-105); Sodium 140 mmol/L (137-145)
[2019-11-02 06:20] LABS: INR 1.3; Prothrombin Time 15.5 Seconds (11.1-14.7)
[2019-11-02 06:21] LABS: Hematocrit 29.2 % (37.0-47.0); Hemoglobin 9.2 g/dL (12.0-15.0); Mean Corpuscular HGB Conc 31.5 g/dl (32-36); Mean Corpuscular Hemoglobin 32.4 pg (26-34); Mean Corpuscular Volume 102.8 fl (80-100); Mean Platelet Volume 9.3 fl (7.4-10.4); Platelet Count Result 154 k/mm3 (150-375); Red Blood Count 2.84 M/mm3 (4.2-5.4); Red Cell Distribution Width 16.5 % (11.5-14.5)
--- NOTE | 2019-11-02 08:02 | WPDGIPROGNO ---
Progress Note: A&P Additional Plan Patient comfortable this morning. Past to dark bowel movement last evening. Nursing staff described this is melena. Stool confirmed to be Hemoccult positive. Physical exam reveals Vital Signs stable. HEENT exam she is anicteric. Lungs are clear to auscultation percussion. Heart is without murmur. Abdomen bowel sounds are present soft nontender. Labs reveal hemoglobin 9.2, hematocrit 29.2, MCV 102.8. Stable after transfusion. Protime 15.5, INR 1.3. Impression 1. Anemia. Chronic anemia related to chronic kidney disease suspected. Acute decline in hemoglobin may be related to hematoma. Now with occult blood in stool. Will plan to proceed with EGD. Stool was described as melena last night and confirmed to be Hemoccult positive. 2. Occult blood in stool. Dark stool suggest melenic stool EGD will be planned. 3. Valvular heart disease. Anticoagulation will need to be resumed. Subjective Date/time seen: 11/02/19 08:02 Objective Data Vital Signs Vital Signs: Vital Signs - 24 hr 11/01/19 09:46 11/01/19 12:50 11/01/19 13:54 Temperature 36.4 C Pulse Rate 64 63 Respiratory Rate 16 Blood Pressure 123/47 L 146/47 H Pulse Oximetry 92 11/01/19 17:35 11/01/19 18:02 11/01/19 18:03 Temperature Pulse Rate Respiratory Rate Blood Pressure 145/47 H 135/45 L 148/42 H Pulse Oximetry 11/01/19 20:00 11/01/19 21:12 11/01/19 21:16 Temperature Pulse Rate 64 62 62 Respiratory Rate 16 18 Blood Pressure 144/55 H Pulse Oximetry 96 94 11/01/19 21:50 11/02/19 06:00 Temperature 36.4 C 36.6 C Pulse Rate 64 68 Respiratory Rate 16 16 Blood Pressure 145/38 H 160/56 H Pulse Oximetry 96 97 Intake/Output Intake/Output: Intake & Output 10/30/19 10/31/19 11/01/19 11/02/19 23:59 23:59 23:59 23:59 Intake Total 1471 480 710 280 Output Total 100 Balance 1471 480 610 280 Meds/Results Medications: Active Medications Generic Name Dose Route Start Last Admin Trade Name Freq PRN Reason Stop Dose Admin Acetaminophen 325 mg 04/01/20 19:55 Tylenol Tablet PO Q6-8H PRN Pain Atorvastatin Calcium 80 mg 10/30/19 09:00 11/01/19 09:44 Lipitor PO 80 mg DAILY [facility] Administration Calcium Carbonate 500 mg 10/30/19 09:00 11/01/19 09:45 Os-Joni 500 +D Tablet PO 500 mg QAM [facility] Administration Carvedilol 12.5 mg/ Carvedilol 37.5 mg 10/29/19 21:00 11/01/19 21:16 25 mg PO 37.5 mg Q12HR [facility] Administration Dextrose 12.5 gm 10/30/19 18:42 Dextrose 50% Syringe IV PUSH PRN PRN Hypoglycemia Protocol Docusate Sodium 100 mg 10/30/19 09:00 11/01/19 09:44 Colace Capsule PO 100 mg DAILY [facility] Administration Famotidine 40 mg 10/30/19 09:00 11/01/19 09:45 Pepcid PO 40 mg DAILY [facility] Administration Fentanyl 50 mcg 10/30/19 09:00 10/30/19 08:56 Duragesic 50 Mcg Patch TRANSDERM 50 mcg Q72H [facility] Administration Ferrous Sulfate 324 mg 10/29/19 17:00 11/01/19 17:35 Ferrous Sulfate PO 324 mg BID [facility] Administration Furosemide 40 mg 10/31/19 09:00 11/01/19 09:34 Lasix Tablet PO Not Given DAILY [facility] Glucagon 1 mg 10/30/19 18:42 Glucagon For Inj IM PRN PRN Hypoglycemia Protocol Glucose 15 gm 10/30/19 18:42 Glutose 15 PO PRN PRN Hypoglycemia Protocol Hydralazine HCl 25 mg 10/29/19 17:00 11/01/19 17:42 Apresoline Tablet PO Not Given TID [facility] Dextrose 1,000 mls @ 100 mls/hr 10/30/19 18:42 Dextrose 5% 1,000 Ml IVPB PRN PRN Hypoglycemia Protocol Insulin Aspart 3 - 6 units 10/31/19 08:00 11/01/19 17:40 Novolog SUB-Q Not Given TIDWM [facility] Protocol Isosorbide Dinitrate 20 mg 10/29/19 17:00 11/01/19 17:35 Isordil PO 20 mg BID [facility] Administration Lidocaine 1 patch 10/30/19 16:22 11/01/19 09:40 Lidoderm TRANSDERM 1 patch DAILY PRN Administration Pain
[2019-11-02] MEDS: LACTATED RINGERS 1,000 ML 150 ML IV CONT (08:17)
--- NOTE | 2019-11-02 08:20 | PC.NURSE ---
To GI Lab per [bed ].
--- NOTE | 2019-11-02 08:21 | WPDANESEPPF ---
Anes - Initial Pre Proc Eval Procedure: Operation Date: 11/02/19 08:15 Proposed Procedures p Esophagogastroduodenoscopy/Stent Removal - Collin Roberts MD Date/Time: 11/02/19 08:21 Surgeon: Valery Orozco PA-C Pre Op Diagnosis: Elevated INR/anemia Patient Data Age: 74 Gender: F Height: 5 ft 1 in Weight: 60.3 kg Last Vital Signs Temp 36.6 C 11/02/19 06:00 Pulse 68 11/02/19 06:00 Resp 16 11/02/19 06:00 BP 160/56 H 11/02/19 06:00 Pulse Ox 97 11/02/19 06:00 Allergies Allergy/AdvReac Type Severity Reaction Status Date / Time hydrocodone Allergy Unknown Unknown Verified 10/29/19 23:30 vancomycin Allergy Unknown Unknown Verified 10/29/19 23:30 Home Medications Medication Instructions Recorded Confirmed Type Anoro Ellipta 1 puff DAILY 10/29/19 10/29/19 History acetaminophen [Tylenol] 325 mg PO Q6-8H PRN 10/29/19 10/29/19 History atorvastatin 80 mg PO DAILY 10/29/19 10/29/19 History calcium carbonate-vitamin D3 1 tablet PO DAILY 10/29/19 10/29/19 History [Calcium 600 + D(3)] carvedilol 37.5 mg PO BID 10/29/19 10/29/19 History cholecalciferol (vitamin D3) 25 mcg PO DAILY 10/29/19 10/29/19 History docusate sodium [Colace] 100 mg PO DAILY 10/29/19 10/29/19 History famotidine 40 mg PO DAILY 10/29/19 10/29/19 History fentanyl 1 patch TRANSDERMAL Q72H 10/29/19 10/29/19 History ferrous sulfate 325 mg PO BID 10/29/19 10/29/19 History furosemide 40 mg PO DAILY 10/29/19 10/29/19 History hydralazine 25 mg PO TID 10/29/19 10/29/19 History isosorbide dinitrate 20 mg PO BID 10/29/19 10/29/19 History lidocaine [Lidocaine Pain Relief] 1 patch TOPICAL DAILY PRN 10/29/19 10/29/19 History magnesium oxide 400 mg PO DAILY 10/29/19 10/29/19 History metolazone 2.5 mg PO DAILY 10/29/19 10/29/19 History polyethylene glycol 3350 17 g PO DAILY 10/29/19 10/29/19 History promethazine 25 mg PO QID PRN 10/29/19 10/29/19 History sertraline 100 mg PO DAILY 10/29/19 10/29/19 History tramadol 50 mg PO Q6H PRN 10/29/19 10/29/19 History trazodone 50 mg PO HS 10/29/19 10/29/19 History Laboratory Tests 10/29/19 11/01/19 11/01/19 20:44 08:36 12:50 WBC RBC Hgb Hct MCV MCH MCHC RDW Plt Count MPV Haptoglobin 17 mg/dL L mg/dL (43-212) PT INR Sodium Potassium Chloride Carbon Dioxide BUN Creatinine Estim Creat Clear Calc Estimated GFR Glucose POC Capillary Glucose 94 mg/dl mg/dl 200 mg/dl H mg/dl (65-105) (65-105) Calcium Stl Occult Blood (IFOB) 11/01/19 11/01/19 11/01/19 16:17 17:39 21:27 WBC RBC Hgb Hct MCV MCH MCHC RDW Plt Count MPV Haptoglobin PT INR Sodium Potassium Chloride Carbon Dioxide BUN Creatinine Estim Creat Clear Calc Estimated GFR Glucose POC Capillary Glucose 134 mg/dl H mg/dl 156 mg/dl H mg/dl (65-105) (65-105) Calcium Stl Occult Blood (IFOB) Positive H (N) 11/02/19 11/02/19 11/02/19 05:34 05:34 05:34 WBC 5.0 K/mm3 K/mm3 (4.5-10.0) RBC 2.84 M/mm3 L M/mm3 (4.2-5.4) Hgb 9.2 g/dL L g/dL (12.0-15.0) Hct 29.2 % L % (37.0-47.0) MCV 102.8 fl H fl (80-100) MCH 32.4 pg pg (26-34) MCHC 31.5 g/dl L g/dl (32-36) RDW 16.5 % H % (11.5-14.5) Plt Count 154 k/mm3 k/mm3 (150-375) MPV 9.3 fl fl (7.4-10.4) Haptoglobin PT 15.5 Seconds H Seconds (11.1-14.7) INR 1
--- NOTE | 2019-11-02 09:10 | PC.NURSE ---
Pt returned from GI lab per myranda.
[2019-11-02] MEDS: ISOSORBIDE DINITRATE 20 MG TABLET PO (10:01)
[2019-11-02] MEDS: hydrALAZINE HCL 25 MG TABLET PO (10:01)
[2019-11-02] MEDS: FENTANYL 50 MCG/HR PATCH TRANSDERM (10:04)
[2019-11-02 13:01] LABS: Glucose Point of Care 121 (65-105)
[2019-11-02 22:50] LABS: Abnormal Protein Band 1 1.2 g/dL; Albumin 3.3 g/dL (3.8-4.8); Alpha 1 Globulin 0.5 g/dL (0.2-0.3); Alpha 2 Globulin 0.6 g/dL (0.5-0.9); Beta 1 Globulin 0.3 g/dL (0.4-0.6); Gamma Globulin 1.9 g/dL (0.8-1.7); Protein, Total 6.8 g/dL (6.1-8.1)
--- NOTE | 2019-11-03 07:20 | PM.DS ---
DS: Diagnosis Admitting Diagnosis Admitting Diagnosis: Anemia, unspecified Discharge Diagnosis (1) Warfarin-induced coagulopathy: Code(s): D68.32 - Hemorrhagic disorder due to extrinsic circulating anticoagulants; T45.515A - Adverse effect of anticoagulants, initial encounter Status: Acute Assessment and Plan: Ms. Nguyen is a 74 yo female with a PMH significant for CKD, HTN, and CAD s/p mechanical aortic valve replacement anticoagulated with warfarin who presented to the ED on 11/03/2019 with complaints of dark stools, a bloody nose, and an INR >10. She had a recent fall and had a large hematoma on her back. At arrival, her INR was 6.9. Rather than acutely reverse with Vitamin K, it was determined to trend INR and allow time for decrease as she was hemodynamically stable. INR decreased to 3.0 the following day and then 1.8 which is when warfarin was restarted at 1 mg. Per discussion with SNF, her usual dose is 2 mg and 3 mg alternating daily. Staff also reports that her warfarin was on hold since early September, therefore it is unclear how she became supratherapeutic but suspect she may have been taking warfarin on her own. As INR remained stable, she was discharged back to [facility] with instructions to continue to monitor INR and hold if >3.0. Dose adjustment to be made at discretion of facility physician and she will need to follow up with PCP in one week. (2) Anemia: Qualifiers: Anemia type: unspecified type Qualified Code(s): D64.9 - Anemia, unspecified Code(s): D64.9 - Anemia, unspecified Status: Acute Assessment and Plan: She had macrocytic anemia at presentation but was asymptomatic at 7.5. She had a recent fall and had a large hematoma on her back, which likely contributed to anemia. H&H monitored Q6H and next Hgb was 6.8. She was transfused 2 units pRBC on 10/29/19. Following transfusion, H&H remained stable. Dr. Roberts performed EGD on 11/02/19 due to hemoccult positive stool, which revealed small gastric ulcers which were not bleeding at time of EGD. She was started on daily protonix and educated to avoid NSAIDs and ASA. (3) Congestive heart failure: Code(s): I50.9 - Heart failure, unspecified Status: Acute Assessment and Plan: Patients daughter in law reports she has a history of CHF and per last echo approximately 6 months ago her EF was 20%. Patient declined to undergo echo on 10/30/19. She was noted to have pedal edema and bibasilar crackles. She was given IV lasix and then continued on home dose lasix. Daily weights were monitored. (4) Acute on chronic kidney failure: Code(s): N17.9 - Acute kidney failure, unspecified; N18.9 - Chronic kidney disease, unspecified Status: Acute Assessment and Plan: Patient has CKD and per her daughter in law her baseline is 2.1. 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 At presentation, her creatinine was 3.5. She refused renal US on 10/29. Her creatinine continues to trend down and was 2.5 on day of discharge. This acute increase may have been prerenal but unclear as her true baseline is unknown. Her urine output is good. (5) Diabetes mellitus: Code(s): E11.9 - Type 2 diabetes mellitus without complications Status: Chronic Assessment and Plan: Blood sugar remained stable during stay. She was monitored with accuchecks and hypoglycemia protocol was implemented. (6) COPD (chronic obstructive pulmonary disease): Code(s): J44.9 - Chronic obstructive pulmonary disease, unspecified Status: Chronic Assessment and Plan: Not in acute exacerbation during stay and had maintained good oxygen saturation on room air. Her home inhalers were continued. (7) Hypertension: Code(s): I10 - Essential (primary) hypertension Status: Chronic Assessment and Plan: Blood pressure was monitored and remained relatively stable. She was continued on Coreg and hydralazine. (
[2019-11-04 16:38] LABS: Soluble Transferrin Receptor 0.97 mg/L (0.76-1.76)
[2019-11-04 17:07] LABS: Creatinine, Random Urine 52 mg/dL (20-275); Total Protein/Creatinine Ratio 192 mg/g creat (21-161)
== END 2019-11-02 17:00 ==
LOC: ANHED 16:31 → ANH3MEDSUR 16:48
PROVIDERS: Emergency Medicine; Internal Medicine Gastroenterology; Nurse Practitioner; Physician Assistant; Admitting Provider Family Medicine; Emergency Provider Emergency Medicine; Visit Provider Internal Medicine
PROC: 0DP08DZ Removal of Intraluminal Device from Upper Intestinal Tract, Via Natural or Artificial Opening Endoscopic (ICD-10-PCS; CPT 43247; principal; 2019-11-02 08:15)
DX: K25.0 Acute gastric ulcer with hemorrhage (principal); K29.51 Unspecified chronic gastritis with bleeding; D68.32 Hemorrhagic disorder due to extrinsic circulating anticoagulants; T45.515A Adverse effect of anticoagulants, initial encounter; D53.9 Nutritional anemia, unspecified; E11.22 Type 2 diabetes mellitus with diabetic chronic kidney disease; I13.0 Hypertensive heart and chronic kidney disease with heart failure and stage 1 through stage 4 chronic kidney disease, or unspecified chronic kidney disease; I50.9 Heart failure, unspecified; N18.9 Chronic kidney disease, unspecified; N17.9 Acute kidney failure, unspecified; J44.9 Chronic obstructive pulmonary disease, unspecified; S20.221A Contusion of right back wall of thorax, initial encounter; W19.XXXA Unspecified fall, initial encounter; G89.29 Other chronic pain; E55.9 Vitamin D deficiency, unspecified; I71.4 Abdominal aortic aneurysm, without rupture; E79.0 Hyperuricemia without signs of inflammatory arthritis and tophaceous disease; I25.10 Atherosclerotic heart disease of native coronary artery without angina pectoris; I48.91 Unspecified atrial fibrillation; E78.5 Hyperlipidemia, unspecified; F32.9 Major depressive disorder, single episode, unspecified; I25.2 Old myocardial infarction; Z66 Do not resuscitate; Z79.01 Long term (current) use of anticoagulants; Z86.73 Personal history of transient ischemic attack (TIA), and cerebral infarction without residual deficits; Z87.891 Personal history of nicotine dependence; Z95.2 Presence of prosthetic heart valve
CPT/HCPCS: 43239; 36415; 36430; 70450; 74176; 80048; 80053; 81001; 82247; 82248; 82274; 82570; 82607; 82728; 82746; 83010; 83540; 83550; 83615; 83735; 84155; 84156; 84165; 84166; 84238; 84443; 84466; 84550; 85014; 85018; 85025; 85027; 85046; 85610; 85730; 86850; 86860; 86870; 86880; 86900; 86901; 86923; 86971; 88305; 96372; 96374; 99285; A9270; G0378; J1940; J2704; J3430; J7120; P9016